=== PATIENT | female | born 1990 | race Caucasian/White ===

== ENCOUNTER 2020-05-05 15:35 | Emergency (ER) | payer OTHER ==
[~2020-05-05] VITALS: Ht 167.6 cm; Wt 61.0 kg
[2020-05-05 15:38] VITALS: BP 117/74
[2020-05-05] MEDS ORDERED: LIDOCAINE HCL 1% 20ML VIAL (Pyxis) INJ INFIL ONE (16:45)
[2020-05-05] MEDS ORDERED: TETANUS, DIPHTHERIA, PERTUSSIS VAC/PF 0.5ML (>7YR OLD) IM ONE (17:15)
== END 2020-05-05 17:37 | disposition home or self-care (01) ==
LOC: ER 15:35
DX: S81.812A Laceration without foreign body, left lower leg, initial encounter (principal); F20.9 Schizophrenia, unspecified; W25.XXXA Contact with sharp glass, initial encounter; Y93.89 Activity, other specified; Y92.511 Restaurant or cafe as the place of occurrence of the external cause
CPT/HCPCS: 12001; 73560; 73590; 73620; 90471; 90715; 99284; J3490